=== PATIENT | female | born 1985 | race Caucasian/White ===

== ENCOUNTER 2018-12-17 16:08 | Emergency (ER) | payer SELFPAY, MEDICAID ==
[2018-12-17] MEDS: IBUPROFEN 600 MG TAB PO (18:24)
== END 2018-12-17 19:26 | disposition home or self-care (01) ==
LOC: FTE 16:08
DX: S50.12XA Contusion of left forearm, initial encounter (principal); S39.012A Strain of muscle, fascia and tendon of lower back, initial encounter; E03.9 Hypothyroidism, unspecified; S80.211A Abrasion, right knee, initial encounter; V49.59XA Passenger injured in collision with other motor vehicles in traffic accident, initial encounter
CPT/HCPCS: 73090; 99283-25